=== PATIENT | male | born 1995 | race Two or more races ===

== ENCOUNTER 2024-01-30 19:01 | Emergency (ER) | payer SELFPAY ==
--- NOTE | ~2024-01-30 | CT_ITS ---
EXAMINATION: CT lumbar spine wo con DATE: 01/30/2024 23:11 INDICATION: low back pain . TECHNIQUE: Computed tomography (CT) of the lumbar spine was performed without intravenous contrast. A utomated exposure control and iterative reconstruction technique were employed. The dose-length produ ct was 469.76 mGy-cm. COMPARISON: None. FINDINGS: 5 nonrib-bearing lumbar-type vertebral bodies. Pedicles intact. Trace retrolisthesis at L4- 5. Vertebral body heights preserved. 5 mm central disc protrusion at L4-5, causing mild central canal stenosis. Mild disc space narrowing present at all remaining lumbar levels. Unfused posterior arch a t S1. Hypoplastic right facet at L5-S1. No severe neural foraminal narrowing or central canal stenosi s. IMPRESSION: 5 mm central disc protrusion at L4-5, causing mild canal stenosis. No acute fracture or traumatic malalignment detected in the lumbar spine. Reviewed, dictated and finalized at location [facility]
[2024-01-30 19:08] VITALS: BP 148/100; PULSE 104; RESP 18; TEMP 36.4; O2SAT 97
[2024-01-30] MEDS: KETOROLAC 30 MG/ML VIAL (*BKC) IM (22:36)
--- NOTE | 2024-01-30 23:06 | PC.NURSE ---
Assumed care of pt from [place] TERRELL at this time.
--- NOTE | 2024-01-30 23:23 | ED.BACK ---
HPI - Back Pain/Injury General Chief Complaint: Back Pain/Injury Stated Complaint: back pain Time Seen by Provider: 01/30/24 22:04 Source: patient Mode of arrival: wheelchair Limitations: no limitations History of Present Illness HPI Narrative: This is a 28 year old male that presents to the ER for low back pain ongoing over the last several days. No known injury or trauma. The pain is in his mid low back. No radiation. Denies saddle anesthesia or bowel/bladder incontinence. He took a dose of a muscle relaxer with little relief. Related Data Allergies Allergy/AdvReac Type Severity Reaction Status Date / Time No Known Allergies Allergy Verified 01/30/24 20:42 Review of Systems Review of Systems: CONSTITUTIONAL: Denies fever MUSCULOSKELETAL: Reports back pain, joint pain, and myalgia. NEUROLOGIC: Denies numbness, or weakness. All systems reviewed & are unremarkable except as noted in HPI and below PMFSH Past Medical History Medical History (Updated 01/31/24 @ 00:18 by Sera Spicer PA-C) No active medical problems Social History Social History (Updated 01/30/24 @ 23:27 by Sera Spicer PA-C) Smoking status: Never smoker Exam Narrative: GENERAL: Well-appearing, well-nourished, and in no acute distress. HEAD: Normocephalic, atraumatic. EYES: EOMI. CHEST: Clear to auscultation. No respiratory distress. No wheezes rales or rhonchi HEART: Regular rate and rhythm. No murmur heard. Normal peripheral pulses. BACK: No midline spinal tenderness EXTREMITIES: Normal range of motion. No edema. Strength equal in bilateral lower extremities (5/5). Normal DP pulse SKIN: Warm, dry, no rash. NEURO: No focal deficits. Alert and oriented x3. PSYCH: Normal mood and affect Course Course Emergency Course: Patient updated on his workup and agrees with plan of care Vital Signs Vital signs: Vital Signs Temperature 97.6 F 01/30/24 19:08 Pulse Rate 104 H 01/30/24 19:08 Respiratory Rate 18 01/30/24 19:08 Blood Pressure 148/100 H 01/30/24 19:08 Pulse Oximetry 97 01/30/24 19:08 Temperature 97.6 F 01/30/24 19:08 Pulse Rate 104 H 01/30/24 19:08 Respiratory Rate 18 01/30/24 19:08 Blood Pressure 148/100 H 01/30/24 19:08 Pulse Oximetry 97 01/30/24 19:08 MDM - Back Pain/Injury MDM Narrative Medical decision making narrative: Patient presents to the emergency department for low back pain ongoing over the last several days. No recent injuries or trauma. He is neurologically intact. CT scan of the lumbar spine does show disc protrusion at L4/5. Patient updated on his workup and agrees with plan of care. He is to follow up with primary provider. He was given warnings to return to the ER Differential Diagnosis Differential diagnosis: Likely lumbar radiculopathy, sciatica and strain of lumbar region Imaging Data Radiologist's impression: ITS Impressions Lumbar Spine CT 01/30/24 23:16 IMPRESSION: 5 mm central disc protrusion at L4-5, causing mild canal stenosis. No acute fracture or traumatic malalignment detected in the lumbar spine. Critical Care Time Critical Care Time Critical Care Time: No Discharge Plan Discharge Clinical Impression: Bulging disc Spinal stenosis Qualifiers: Spinal region: lumbar Neurogenic claudication status: without neurogenic claudication Qualified Code(s): M48.061 - Spinal stenosis, lumbar region without neurogenic claudication Patient Disposition: Home, Self-Care Condition: Stable Instructions: Lumbar Disc Herniation (ED), Lumbar Spinal Stenosis (ED) Additional Instructions: Return to the ER if you experience weakness, numbness, bowel/bladder incontinence, or any other symptoms that are concerning to you Rest, use ice/heat, take anti-inflammatories (Naproxen) or Tylenol as needed for pain as well as muscle relaxer (Flexeril) as needed for pain. Muscle relaxers can make you drowsy, do not drive if you take this. Take steroid taper as prescribed Follow up with primary care doctor Prescriptions: New methylprednisolone 4 mg tablets,dose pack See Rx Instructions .ROUTE .COMPLEX Qty: 21 0RF Rx Instructions: orally per package directions acetaminophen 500 mg/15 mL liquid 500 mg PO Q6H PRN (Reason: pain) Qty: 237 0RF cyclobenzaprine 10 mg tablet 10 mg PO TID PRN (Reason: muscle spasm) Qty: 14 0RF naproxen 125 mg/5 mL suspension 250 mg PO BID PRN (Reason: pain) Qty: 473 0RF Follow-up/Referrals: Betzy Cordova MD [Physician] - PHYSICIAN,METHODS ANALYST DATA [employer]ESSING [Primary Care Provider] - Fabian Moraes MD [Physician] -
[2024-01-31 00:42] VITALS: BP 139/87; PULSE 99; RESP 17; O2SAT 100
== END 2024-01-31 00:44 | disposition home or self-care (01) ==
PROVIDERS: Emergency Provider Physician Assistant
DX: M48.061 Spinal stenosis, lumbar region without neurogenic claudication (principal); M51.360 Other intervertebral disc degeneration, lumbar region with discogenic back pain only
CPT/HCPCS: 72131; 96372; 99284; J1885